=== PATIENT | female | born 1950 ===

== ENCOUNTER 2016-04-18 16:58 | Inpatient (IN) | payer OTHER ==
[~2016-04-18] VITALS: Ht 157.5 cm; Wt 68.9 kg
--- NOTE | ~2016-04-18 | HEMODYNAMI ---
PATIENT:RAYNA DEAN MEDICAL RECORD: [id number] : 52 [id number] ADMISSION DATE: 04/18/16 Generatedon:04/19/201615:33 Patient name: RAYNA DEAN Patient #: [id number] SSN: [id number] : 1950 Date of study: 04/19/2016 Page: Of Hemodynamic Procedure Report Patient Data Patient Demographics Procedure consent was obtained First Name: RAYNA Gender: Female Last Name: DIANNE : 1950 Patient #: [id number] Age: 65 year(s) Race: Unknown SSN: [id number] Additional ID: [id number] Contact details Address: [address] [address] State: [place] City: [place] Zip code: [address] Admission Admission Data Admission Date: 04/18/2016 Admission Time: 18:42 Arrival Date: 04/18/2016 Arrival Time: 0:00 Admit Source: Other Insurance Payor: Private Room #: [id number] health insurance Procedure Procedure Types Cath Procedure Diagnostic Procedure [facility] w/Coronaries Temporary Pacemaker Miscellaneous Procedures Moderate Sedation up to 30 minutes Procedure Description Procedure Date Procedure Date: 04/19/2016 Procedure Start Time: 15:05 Procedure End Time: 15:33 Procedure Staff Name Function Jon Puckett MD Performing Physician Lucía Valenzuela RT Scrub Anne-Marie Harris RN Nurse Julio Parrish RT Monitor Procedure Data Cath Procedure Fluoroscopy Diagnostic fluoroscopy Total fluoroscopy Time: 2.2 time: 2.2 min min Diagnostic fluoroscopy Total fluoroscopy dose: 340 dose: 340 mGy mGy Contrast Material Contrast Material Type Amount (ml) Isovue 300 643 Entry Location Entry Primary Successful Side Size Upsize Upsize Entry Closure Succes sful Closure Location (Fr) 1 (Fr) 2 (Fr) Remarks Device Remarks Femoral Right 5 Fr Exoseal artery Femoral Right 6 Fr vein Short Estimated blood loss: 10 ml Diagnostic catheters Device Type Used For End Catheter Placement Cordis 5Fr JL 4.0 Procedure Catheter (MP) Cordis 5Fr 3DRC Catheter Procedure (MP) Cordis 5Fr Pigtail LV Angiography Catheter (MP) Procedure Complications No complications Procedure Medications Medication Administration Route Dosage Oxygen NC 3 l/min Lidocaine 2% added to field 20 Heparin Flush Bag added to field 2 bags (1000units/500ml NS) 0.9% NaCl I.V. 100 ml/hr Versed I.V. 1 mg Fentanyl I.V. 50 mcg Atropine I.V. 2 mg Versed I.V. 1 mg Fentanyl I.V. 50 mcg Hemodynamics Rest Heart Rate: 40 (bpm) Pressure Samples Time Site Value (mmHg) Purpose Heart Use Rate(bpm) 15:07 AO 127/54(77) Snapshot 39 15:12 LV 159/16,22 Snapshot 36 15:13 AO 155/53(82) Pullback 36 15:13 LV 154/13,19 Pullback 36 Gradients Valve Time Site 1 Site 2 Mean SEP/DFP Peak To Heart Use (mmHg) (sec/min) Peak Rate (mmHg) (bpm) Aortic 15:13 LV AO 0 13 0 36 154/13,19 155/53(82) Calculations Valve P-P Mean Valve Index Valve Source Name Gradient Area Flow (cm2) Aortic 0 0 0 0 Snapshots Pre Cath Intra NCS Post Cath Vital Signs Time Heart Resp SPO2 etCO2 QC1oeun NIBP (mmHg) Rhythm Pain Sedation Rate (ipm) (%) (mmHg) (mmHg) Status Level (bpm) 14:54:10 48 13 93 0 0 165/73(124) 3 0 (11) 10(A) degree , No Heart pain Block 14:58:44 40 17 95 0 0 161/55(126) 3 0 (11) 10(A) degree , No Heart pain Block 15:03:18 42 14 92 0 0 132/48(93) 3 0 (11) 10(A) degree , No Heart pain Block 15:07:34 39 17 93 0 0 120/47(88) 3 0 (11) 10(A) degree , No Heart pain Block 15:12:54 42 16 90 0 0 135/70(98) 3 0 (11) 9(A) degree , No Heart pain Block 15:17:20 36 16 93 0 0 132/46(91) 3 0 (11) 9(A) degree , No Heart pain Block 15:21:44 67 15 91 0 0 119/49(86) 3 0 (11) 9(A) degree , No Heart pain Block 15:26:00 63 15 93 0 0 106/54(87) Paced 0 (11) 9(A) , No pain 15:30:12 68 16 94 0 0 109/54(84) Paced 0 (11) 10(A) , No pain Medications Time Medication Route Dose Verified Delivered Reason Notes Effe ctiveness by by 14:55:49 Oxygen NC 3 Jon Buffie used for l/min Italo Harris RN procedure 14:55:55 Lidocaine 2% added 20ml Jon Jon for local to vial Italo Puckett MD anesthetic field 14:56:04 Heparin Flush added 2 Jon Jon used for Bag to bags Italo Puckett MD procedure (1000units/500ml field NS) 14:56:13 0.9% NaCl I.V. 100 Jon Buffie Per ml/hr Italo Harris RN physician 15:05:12 Versed I.V. 1 mg Jon Buffie for Italo Harris RN sedation 15:05:18 Fentanyl I.V. 50 Jon Buffie for mcg Italo Harris RN sedation 15:12:10 Atropine I.V. 2 mg Jon Buffie Per Italo Harris RN physician 15:17:11 Versed I.V. 1 mg Jon Buffie for Italo Harris RN sedation 15:17:14 Fentanyl I.V. 50 Jon Buffie for mcg Italo Harris RN sedation Procedure Log Time Note 14:30:33 Julio Parrish RT(R) sent for patient. Start room use. 14:40:43 Informed consent obtained and on chart 14:40:50 Admit Source: Other 14:40:53 Arrival Date: 04/18/2016 12:00:00 AM 14:41:00 Insurance Payor : Private health insurance 14:44:11 Diagnostic Cath Status : Elective 14:44:40 Time tracking: Regular hours 14:44:45 Plan of Care:Hemodynamics will remain stable., Cardiac rhythm will remain stable., Comfort level will be maintained., Respiratory function will remain adequate., Patient/ family verbilizes understanding of procedure., Procedure tolerated without complication., Recovers from procedure without complications.. 14:44:51 Patient received from CVICU to CCL 1 Alert and oriented. Tansferred to table in Supine position. 14:44:52 Warm blankets applied, and shannon hugger turned on for patient comfort. 14:44:52 Correct patient and procedure confirmed by team. 14:44:53 ECG and BP/O2 sat monitors applied to patient. 14:52:49 Vital chart was started 14:52:50 Baseline sample Acquired. 14:55:24 Rhythm: 3rd degree heart block 14:55:27 Full Disclosure recording started 14:55:29 H&P Date Dictated: 04/18/2016 Within 30 days and on chart.. 14:55:30 Pre-procedure instructions explained to patient. 14:55:31 Pre-op teaching completed and patient verbalized understanding. 14:55:32 Family in waiting room. 14:55:33 Patient NPO since Midnight. 14:55:36 Is the patient allergic to Iodine/contrast media? No. 14:55:38 Is patient on blood thinner?No 14:55:41 ACC The patient was administered the following blood thiners within the last 24 hours: None 14:55:43 Patient diabetic? No. 14:55:45 Patient not . Patient is over age 55. 14:55:46 Previous problem with sedation/anesthesia? No ? 14:55:48 Snore? No 14:55:48 Sleep apnea? No 14:55:49 Oxygen 3 l/min NC was administered by Anne-Marie Harris RN; used for procedure; 14:55:49 Deviated septum? No 14:55:50 Opens mouth fully? Yes 14:55:51 Sticks out tongue? Yes 14:55:52 Airway obstruction? No ? 14:55:54 Dentures? No ? 14:55:55 Lidocaine 2% 20ml vial added to field was administered by Jon Puckett MD; for local anesthetic; 14:56:03 Pre procedure: right dorsailis pedis pulse 1+ Palpable, but thready & weak; easily obliterated 14:56:04 Heparin Flush Bag (1000units/500ml NS) 2 bags added to field was administered by Jon Puckett MD; used for procedure; 14:56:07 Patient pain scale 0/10 ?. 14:56:13 0.9% NaCl 100 ml/hr I.V. was administered by Anne-Marie Harris RN; Per physician; 14:56:14 IV patent on arrival in right antecubital with 0.9% NaCl at [facility]. 14:56:16 Lab results completed and on chart. 14:56:34 Right groin area was prepped with chlora-prep and draped in sterile fashion 14:56:35 Alarms reviewed by R. N. 14:56:36 Sharps counted by scrub and verified by R.N. 14:56:37 --------ALL STOP TIME OUT------ 14:56:38 Final Timeout: patient, procedure, and site verified with staff and physician. All members of the team are in agreement. 14:56:40 Right groin site verified by team. 14:56:42 Physical assessment completed. ASA score P 3 - A patient with severe systemic disease as per Jon Puckett MD. 14:56:46 Sedation plan: IV Moderate Sedation Versed, Fentanyl 14:56:54 Quick Combo opened to sterile field. 14:58:04 Quick combo pads placed to pt's Right chest and Left side. 15:04:20 Zero performed for pressure channel P1 15:04:25 Zero performed for pressure channel P1 15:04:43 Use device set Femoral Dx 15:04:52 Tegaderm 4 x 4 opened to sterile field. 15:04:53 Acist Hand Control opened to sterile field. 15:04:54 Acist Manifold opened to sterile field. 15:04:55 Acist Syringe opened to sterile field. 15:04:56 Bag Decanter opened to sterile field. 15:04:56 Medline Cath Pack opened to sterile field. 15:04:56 Terumo 5Fr Harvey Sheath opened to sterile field. 15:04:57 St Isacc 260cm J .035 wire opened to sterile field. 15:04:58 Diagnostic Infinity 5Fr Multipack catheter opened to sterile field. 15:05:12 Versed 1 mg I.V. was administered by Anne-Marie Harris RN; for sedation; 15:05:18 Fentanyl 50 mcg I.V. was administered by Anne-Marie Harris RN; for sedation; 15:05:19 Procedure started. 15:05:28 Local anesthetic to right femoral artery with Lidocaine 2% by Jon Puckett MD.INITIAL ACCESS ONLY 15:05:48 A 5 Fr sheath was inserted into the Right Femoral artery 15:06:40 A Cordis 5Fr JL 4.0 Catheter (MP) was advanced over the wire and used for Procedure. 15:08:16 LCA angiography performed. 15:09:26 Catheter exchanged over wire. 15:09:44 A Cordis 5Fr 3DRC Catheter (MP) was advanced over the wire and used for Procedure. 15:10:34 RCA angiography performed. 15:10:45 Catheter exchanged over wire. 15:11:20 A Cordis 5Fr Pigtail Catheter (MP) was advanced over the wire and used for LV Angiography. 15:12:10 Atropine 2 mg I.V. was administered by Anne-Marie Harris RN; Per physician; 15:12:50 LV angiography performed. 15:12:52 LV gram done using FLORES 15:13:09 EF : 40 % 15:13:14 LV hemodynamics recorded. 15:13:21 Injector settings: Ml/sec: 10, Volume: 20, 15:14:35 Catheter removed. 15:15:01 Terumo 6Fr Harvey Sheath opened to sterile field. 15:15:02 5Fr J Tip Temporary Pacing Catheter opened to sterile field. 15:15:45 Cordis 5Fr Exoseal opened to sterile field. 15:16:18 Local anesthetic to right femoral vein with Lidocaine 2% by Jon Puckett MD.ADDITIONAL ACCESS 15:16:52 A 6 Fr Short sheath was inserted into the Right Femoral vein 15:17:11 Versed 1 mg I.V. was administered by Anne-Marie Harris RN; for sedation; 15:17:14 Fentanyl 50 mcg I.V. was administered by Anne-Marie Harris RN; for sedation; 15:17:20 Temporary pacer inserted 15:21:32 Temporary pacer turned on with the following settings: Rate 80, MA 3.0, Mode: Demand. 15:22:39 Sheath removed intact; hemostasis achieved with Exoseal to the Right Femoral artery. 15:24:40 Venous sheath was sutured in with 2.0 silk. 15:25:42 Procedure ended.(Physican Out) 15:25:54 Fluoroscopy time 02.20 minutes. 15:25:59 Flurop Dose total: 340 15:25:59 Fluoroscopy dose: 340 mGy 15:26:03 Contrast amount:Isovue 300 643ml. 15:26:05 Sharps counted by scrub and verified by R.N. 15:26:43 Insertion/operative site no bleeding no hematoma. 15:26:46 Post-op/insertion site Right Femoral artery dressed using a 4 x 4 and Tegaderm. 15:26:58 Post Procedure Pulses reassessed and unchanged 15:27:02 Post-procedure physical assessment completed. ASA score P 3 - A patient with severe systemic disease as per Jon Puckett MD. 15:27:13 Post procedure rhythm: unchanged. 15:27:17 Estimated blood loss: 10 ml 15:27:20 Post procedure instruction explained to patient.Patient verbalizes understanding. 15:27:20 Patient needs reinforcement of post procedure teaching. 15:27:51 Procedure type changed to Cath procedure, Diagnostic procedure, LHC, LHC w/Coronaries, Temporary Pacemaker, Miscellaneous Procedures, Moderate Sedation up to 30 minutes 15:27:57 Procedure Complication : No complications 15:28:23 2.0 Silk 685H opened to sterile field. 15:28:30 2.0 Silk 685H opened to sterile field. 15:28:42 Procedure and supply charges have been captured, reviewed, submitted and are correct. 15:32:22 Vital chart was stopped 15:32:22 See physician's report for complete and final results. 15:32:27 Report given to CVICU. 15:33:18 Patient transfered to CVICU with Bed. 15:33:20 Procedure ended. 15:33:20 Full Disclosure recording stopped 15:33:26 End room use (Document Last) Device Usage Item Name Manufacture Quantity Catalog Hospital Part Current Minimal Lot# / Number Charge Number Stock Stock Serial# Code [facility] Systems 1 [id number] 199980 5 Combo Tegaderm 4 3M 1 [id number] [id number] 747266 712240 5 x 4 Acist Hand Acist 1 81875 287616 763633 804845 5 Control [employer] Inc Acist Acist 1 36092 410407 509481 641741 5 Manifold [employer] Inc Acist Acist 1 64234 937752 023191 988889 20 Syringe Medical Systems Inc Bag Microtek 1 2002S 850914 97956 802568 5 Bills Khakis. Medline Cardinal 1 [id number] 070711 93823 098436 5 [employer] Terumo 5Fr Terumo 1 [id number] 830741 523992 117661 [address] Isacc St Isacc 1 225961 432481 008064 894472 30 260cm J .035 wire Diagnostic Cardinal 1 [id number] 728176 21048 582240 30 Infinity Health 5Fr Multipack catheter Cordis 5Fr Cardinal 1 067951 5 JL 4.0 Health Catheter (MP) Cordis 5Fr Cardinal 1 [id number] 5 3DRC Health Catheter (MP) Cordis 5Fr Cardinal 1 805200 5 Pigtail Health Catheter (MP) Terumo 6Fr Terumo 1 [id number] 902981 202293 286539 40 Harvey Sheath 5Fr J Tip Man 1 [id number] 830778 24576 305218 2 Temporary Lifesciences Pacing Catheter Cordis 5Fr Cardinal 1 EX500 771628 895401 572728 10 Exoseal Health 2.0 Silk Ethicon 2 685H 319636 52514 508453 5 685H Signature Audit [place] Stage Time Signature Unsigned Intra-Procedure 04/19/2016 Julio Parrish 3:33:45 PM RT(R) Signatures Monitor : Julio Parrish RT Signature : Date : Time : [place] [id number] [facility] [place] [place] [address]
--- NOTE | ~2016-04-18 | HEMODYNAMI ---
PATIENT:RAYNA DEAN MEDICAL RECORD: [id number] : 52 LOCATION:[id number] ADMISSION DATE: 04/18/16 Generatedon:04/20/201614:55 Patient name: RAYNA DEAN Patient #: [id number] SSN: [id number] : 1950 Date of study: 04/20/2016 Page: Of Hemodynamic Procedure Report Patient Data Patient Demographics Procedure consent was obtained First Name: RAYNA Gender: Female Last Name: DIANNE : 1950 Patient #: [id number] Age: 65 year(s) Race: Unknown SSN: [id number] Additional ID: [id number] Contact details Address: [address] [place] [address] State: [place] City: [place] Zip code: [address] Past Medical History Allergies: No known allergies Admission Admission Data Admission Date: 04/18/2016 Admission Time: 18:42 Arrival Date: 04/18/2016 Arrival Time: 0:00 Admit Source: Other Insurance Payor: Private Room #: D.[id number] health insurance Procedure Procedure Types Cath Procedure Diagnostic Procedure PPM/ICD PPM Dual Implant Procedure Description Procedure Date Procedure Date: 04/20/2016 Procedure Start Time: 13:19 Procedure Staff Name Function Perfecto Yanez MD Performing Physician Geena Rios RT Scrub Anne-Marie Harris RN Nurse Bharat Gregory RT Monitor Nasir Nicolas MD Assisting physician Aislinn Pineda RT Monitor Procedure Data Cath Procedure Fluoroscopy Diagnostic fluoroscopy Total fluoroscopy Time: 4.1 time: 4.1 min min Diagnostic fluoroscopy Total fluoroscopy dose: 187 dose: 187 mGy mGy Procedure Complications No complications Procedure Medications Medication Administration Route Dosage Ancef (1Gm/50ml NS) I.V.P.B 1 g Ancef Irrigation Topical 1 g (1gm/500ml NS) Lidocaine 1% with added to field 20 ml Epi Bupivacaine 0.5% S.Q. 10 ml Versed I.V. 1 mg Fentanyl I.V. 50 mcg Versed I.V. 1 mg Fentanyl I.V. 50 mcg Fentanyl I.V. 25 mcg Fentanyl I.V. 50 mcg Fentanyl I.V. 25 mcg Hemodynamics Rest Heart Rate: 60 (bpm) Snapshots Pre Cath Intra NCS Post Cath Vital Signs Time Heart Resp SPO2 NIBP Rhythm Pain Sedation Rate (ipm) (%) (mmHg) Status Level (bpm) 13:54:46 59 19 94 142/54(84) Paced 0 (11) 10(A) , No pain 13:59:10 60 16 95 97/54(74) Paced 0 (11) 10(A) , No pain 14:03:18 57 18 96 114/52(80) Paced 0 (11) 10(A) , No pain 14:07:34 59 15 95 99/48(77) Paced 0 (11) 10(A) , No pain 14:11:42 59 18 94 103/52(76) Paced 0 (11) 10(A) , No pain 14:16:53 42 16 96 108/58(97) 3 0 (11) 10(A) degree , No Heart pain Block 14:22:02 41 15 95 118/42(83) 3 0 (11) 10(A) degree , No Heart pain Block 14:27:26 41 20 95 104/44(72) 3 0 (11) 10(A) degree , No Heart pain Block 14:31:27 40 18 95 104/80(93) 3 0 (11) 10(A) degree , No Heart pain Block 14:35:31 84 19 91 100/55(70) 3 0 (11) 10(A) degree , No Heart pain Block 14:39:39 90 16 93 103/57(83) 3 0 (11) 10(A) degree , No Heart pain Block 14:43:47 86 16 95 111/60(85) 3 0 (11) 10(A) degree , No Heart pain Block 14:47:55 89 17 96 121/65(85) 3 0 (11) 10(A) degree , No Heart pain Block 14:51:54 No Cuff 3 0 (11) 10(A) degree , No Heart pain Block Medications Time Medication Route Dose Verified Delivered Reason Notes Effectiv eness by by 13:55:03 Ancef Topical 1 g Perfecto Que used for Irrigation Spicer Breving procedure (1gm/500ml MD PRO NS) 13:55:12 Lidocaine added 20 ml Perfecto Grey for local 1% with Epi [facility] MD PRO 13:55:24 Bupivacaine S.Q. 10 ml Perfecto Grey for local 0.5% [facility] PRO 14:06:16 Versed I.V. 1 mg Perfecto Xie for Spicer Harris RN sedation 14:06:23 Fentanyl I.V. 50 Perfecto Fosterie for mcg Renata Harris RN sedation 14:10:25 Ancef I.V.P.B 1 g Perfecto Xie used for (1Gm/50ml Spicer Harris axle inspector NS) 14:18:22 Versed I.V. 1 mg Perfecto Fosterie for Renata Harris RN sedation 14:18:27 Fentanyl I.V. 50 Perfecto Buffie for mcg Renata Harris RN sedation 14:20:46 Fentanyl I.V. 25 Perfecto Fosterie for mcg Spicer Harris RN sedation 14:30:13 Fentanyl I.V. 50 Perfecto Fosterie for mcg Spicer Harris RN sedation 14:32:38 Fentanyl I.V. 25 Perfecto Fosterie for mcg Renata Harris RN sedation Procedure Log Time Note 13:15:48 Anne-Marie Harris RN sent for patient. Start room use. 13:20:17 Patient arrived with Temp Pacemaker in place. 13:20:42 ACC Patient presents with Non-STEMI CCS Anginal Class 2--Slight limitation of ordinary activity. 13:20:45 Diagnostic Cath status Urgent 13:20:54 Time tracking: Regular hours 13:20:58 Plan of Care:Hemodynamics will remain stable., Cardiac rhythm will remain stable., Comfort level will be maintained., Respiratory function will remain adequate., Patient/ family verbilizes understanding of procedure., Procedure tolerated without complication., Recovers from procedure without complications.. 13:21:06 Use device set Pacemaker Set 13:21:10 Mepilex Dressing opened to sterile field. 13:21:12 2.0 Ticron Multipack opened to sterile field. 13:21:16 3.0 Vicryl Multipack [id number] opened to sterile field. 13:21:17 5.0 Monocryl PS2 Y495G opened to sterile field. 13:21:42 Medtronic cash posting representative GEETA MANRIQUEZ present for procedure. 13:53:16 Patient received from CVICU to CCL 2 Alert and oriented. Tansferred to table in Supine position. 13:53:17 Warm blankets applied, and shannon hugger turned on for patient comfort. 13:53:18 Correct patient and procedure confirmed by team. 13:53:19 Signed procedure consent form obtained from patient. 13:53:20 ECG and BP/O2 sat monitors applied to patient. 13:53:22 Vital chart was started 13:53:22 Full Disclosure recording started 13:53:26 Pre-procedure instructions explained to patient. 13:53:27 Pre-op teaching completed and patient verbalized understanding. 13:53:29 Family in waiting room. 13:53:30 Patient NPO since Midnight. 13:53:37 Patient allergic to No known allergies 13:53:45 Rhythm: paced 13:53:51 Is the patient allergic to Iodine/contrast media? No. 13:53:55 Is patient on blood thinner?No 13:53:59 Patient diabetic? No. 13:54:28 Previous problem with sedation/anesthesia? No ? 13:54:30 Snore? No 13:54:31 Sleep apnea? No 13:54:31 Deviated septum? No 13:54:32 Opens mouth fully? Yes 13:54:33 Sticks out tongue? Yes 13:54:34 Airway obstruction? No ? 13:54:36 Dentures? No ? 13:54:52 Patient pain scale 0/10 ?. 13:55:03 Ancef Irrigation (1gm/500ml NS) 1 g Topical was administered by Que Bradley MD; used for procedure; 13:55:09 IV patent on arrival in right forearm with 0.9% NaCl at O. 13:55:12 Lidocaine 1% with Epi 20 ml added to field was administered by Que Bradley MD; for local anesthetic; 13:55:24 Bupivacaine 0.5% 10 ml S.Q. was administered by Que Bradley MD; for local anesthetic; 13:55:57 Lab results completed and on chart. 13:56:09 Left chest area was prepped with chlora-prep and draped in sterile fashion 13:56:10 Alarms reviewed by R. N. 13:56:10 Sharps counted by scrub and verified by R.N. 13:56:14 Use device set Pacemaker Set 13:56:16 3.0 Vicryl Single Pack [id number] opened to sterile field. 13:56:19 Mepilex Dressing opened to sterile field. 13:56:20 2.0 Ticron Multipack opened to sterile field. 13:56:28 3.0 Vicryl Multipack [id number] opened to sterile field. 13:56:30 5.0 Monocryl PS2 Y495G opened to sterile field. 13:57:45 Baseline sample Acquired. 13:58:16 3.0 Vicryl Single Pack [id number] opened to sterile field. 13:58:50 Pre sharps counted by scrub and verified by RN: Sutures: 15 Sponges: 5 Stick needles: 2 Skin needles: 2 Blade: 1 Cautery: 1 13:58:53 Grounding pad site Left thigh. 14:02:00 Grounding pad site free from injury. 14:04:11 Final Timeout: patient, procedure, and site verified with staff and physician. All members of the team are in agreement. 14:04:23 Left chest site verified by team. 14:04:28 Physical assessment completed. ASA score P 2 - A patient with mild systemic disease as per Perfecto Yanez MD. 14:04:32 Sedation plan: IV Moderate Sedation Versed, Fentanyl 14:06:16 Versed 1 mg I.V. was administered by Anne-Marie Harris RN; for sedation; 14:06:23 Fentanyl 50 mcg I.V. was administered by Anne-Marie Harris RN; for sedation; 14:10:25 Ancef (1Gm/50ml NS) 1 g I.V.P.B was administered by Anne-Marie Harris RN; used for procedure; 14:13:04 Lidocaine 1% w/epi and Bupivacaine 0.5% to left subclavicular area by Nasir Nicolas MD. 14:14:47 Temporary pacer turn off 14:15:32 Incision made to left subclavicular area. 14:15:34 Generator pocket made/opened. 14:17:50 Medtronic 4574-45 PPM Lead opened to sterile field. 14:17:51 Medtronic Adapta PPM Dual Generator opened to sterile field. 14:17:51 Medtronic 4074-52 PPM Lead opened to sterile field. 14:18:22 Versed 1 mg I.V. was administered by Anne-Marie Harris RN; for sedation; 14:18:27 Fentanyl 50 mcg I.V. was administered by Anne-Marie Harris RN; for sedation; 14:19:37 Left subclavian vein accessed with 7Fr Safe Sheath. 14:20:46 Fentanyl 25 mcg I.V. was administered by Anne-Marie Harris RN; for sedation; 14:21:27 Ventricular lead inserted and advanced. 14:22:17 Atrial lead inserted and advanced. 14:28:42 temp pacer pulled order by [facility] by aislinn 14:29:18 Ventricular lead tested. 14:30:13 Fentanyl 50 mcg I.V. was administered by Anne-Marie Harris RN; for sedation; 14:30:15 Atrial lead tested. 14:32:38 Fentanyl 25 mcg I.V. was administered by Anne-Marie Harris RN; for sedation; 14:32:38 Ventricular lead attachment was completed with 2-0 ticron. 14:32:44 Atrial lead attachment was completed with 2-0 ticron. 14:35:13 PPM Dual was attached to lead(s) and inserted into pocket. 14:35:59 Generator was sutured in place with 2-0 ticron. 14:36:17 Device pocket was irrigated with Ancef. 14:43:46 Subcutaneous closure was completed with 3-0 vicryl. 14:43:59 Skin closure was completed with 5-0 monocryl. 14:48:40 Parameters-- Generator: Mode: DUAL. Lower Rate: 60bpm. Upper Rate: 130bpm. 14:49:54 Parameters--Ventricular P/R Wave: 13.5mV. Current: 0.6mA; Threshold: 0.5V; Impedence: 896OHMS. 14:50:28 Parameters--Atrial P/R Wave: 3.5mV. Current: 0.5mA; Threshold: 0.5V; Impedence: 606OHMS. 14:50:32 Lt Chest incision was dressed with Mepilex dressing. 14:50:35 Procedure ended.(Physican Out) 14:50:47 Fluoroscopy time 04.10 minutes. 14:50:51 Fluoroscopy dose: 187 mGy 14:50:51 Flurop Dose total: 187 14:50:53 Sharps counted by scrub and verified by R.N. 14:51:01 Post-op/insertion site Left Chest area dressed using a Mepilex dressing. 14:51:14 Post right femoral vein:stable 14:51:21 Post-op/insertion site Right Femoral vein dressed using a 4 x 4 and Tegaderm. 14:51:31 Post Procedure Pulses reassessed and unchanged 14:51:36 Post procedure rhythm: paced 14:51:38 Post procedure instruction explained to patient.Patient verbalizes understanding. 14:51:54 Procedure and supply charges have been captured, reviewed, submitted and are correct. 14:51:58 Procedure Complication : No complications 14:52:01 Vital chart was stopped 14:52:02 See physician's report for complete and final results. 14:52:04 Report given to CVICU. 14:52:07 Patient transfered to CVICU with Bed. 14:52:33 PROCEDURE STOPPED 14:52:36 End room use (Document Last) Device Usage Item Name Manufacture Quantity Catalog Hospital Part Current Minimal Lo t# / Number Charge Number Stock Stock Serial# Code Mepilex Cardinal 2 [id number] [id number] [id number] 337500 5 Dressing Health 2.0 Ethicon 2 [id number] 20638 054725 5 Ticron Multipack 3.0 Ethicon 2 [id number] 366650 480820 198230 5 Vicryl Multipack [id number] 5.0 Ethicon 2 Y495G 658302 514755 206760 5 Monocryl PS2 Y495G 3.0 Ethicon 2 [id number] 487164 938340 727952 5 Vicryl Single Pack [id number] Medtronic Medtronic 1 45 703158 226717 5 BB [id number] Ex p: PPM Lead 20 23-11-11 Medtronic Medtronic 1 [id number] 358133 5 NW [id number] Adapta Ex p: PPM Dual 23-06-27 Generator Medtronic Medtronic 1 [id number] 326404 5 BB [id number] Ex p: PPM Lead 20 22-11-24 Signature Audit [place] Stage Time Signature Unsigned Intra-Procedure 04/20/2016 Bharat Gregory 2:55:22 PM RT(R) Signatures Monitor : Bharat Gregory RT Signature : Date : Time : Monitor : Aislinn Signature : Counts RT Date : Time : [address] [place] [address]
--- NOTE | 2016-04-18 18:40 | NUR ---
PT ARRIVED TO ROOM VIA STRETCHER ACCOMPANIED BY EMS. PT ALERT AND CONVERSANT. REQUESTS TOILETING. PT ON ROOM AIR. NO DISTRESS NOTED. AMBULATES ON OWN, WITH NO DIFFICULTY. NO FAMILY WITH PT AT THIS TIME. HR 44, NO COMPLAINTS OF CHEST PAIN.
--- NOTE | 2016-04-18 18:55 | NUR ---
DR LENNON NOTIFIED PT HAS ARRIVED
[2016-04-18 19:00] VITALS: BP 156/57
--- NOTE | 2016-04-18 19:00 | NUR ---
REPORT RECEIVED. PT IS BRADYCARDIC WITH A HR IN LOW 40'S. 3RD DEGREE BLOCK. NO C/O CHEST PAIN. ALERT AND ORIENTED. STATES SHE DOES NOT CURRENTLY TAKE ANY HOME MEDS. DR LENNON EN ROUTE TO ASSESS PT. WILL CONTINUE TO SHARITA.
[2016-04-18 19:33] VITALS: BP 179/64; BMI 27.8
[2016-04-18 20:00] VITALS: BP 144/72
[2016-04-18 21:00] VITALS: BP 172/48
--- NOTE | 2016-04-18 21:00 | NUR ---
DR LENNON CAME TO SEE PT AND ASSESS STATUS. ORDERS GIVEN FOR 20MG LASIX Q8HR, AND 81 MG ASPIRIN. STATED THAT SHE WILL NEED TO GO TO [employer]OR OF SCOUT WORK TOMORROW. NPO AFTER BREAKFAST. PT C/O PAIN IN IV SITES. ATTEMPTED TO RESITE BY MULTIPLE NURSES WITH NO SUCCESS. IV STILL PATENT IN RIGHT AC. LEFT AC IV REMOVED. FAMILY AT BEDSIDE. NO OTHER CHANGES AT THIS TIME. VSS. WILL CONTINUE TO MONITOR.
[2016-04-18 22:00] VITALS: BP 162/55
[2016-04-18 23:00] VITALS: BP 107/42
[2016-04-19] VITALS (26 sets, daily range): BP systolic 115–168; BP diastolic 44–100; Ht 157.5 cm; Wt 68.9 kg
--- NOTE | 2016-04-19 01:17 | NUR ---
NO CHANGES IN STATUS AT THIS TIME. WILL CONTINUE TO MONITOR.
--- NOTE | 2016-04-19 03:49 | NUR ---
REASSESSMENT COMPLETED. SEE FLOWSHEET FOR FULL DETAILS.
--- NOTE | 2016-04-19 05:00 | NUR ---
NO CHANGES IN STATUS AT THIS TIME. VSS. WILL CONTINUE TO MONITOR.
--- NOTE | 2016-04-19 07:30 | NUR ---
SHIFT ASSESSMENT COMPLETE. SEE FLOW SHEET FOR FINDINGS. PT HAS BEEN UP TO TOILET. NO COMPLAINTS VOICED. ON ROOM AIR. HR 44.
--- NOTE | 2016-04-19 09:00 | NUR ---
FAMILY IN FOR VISITATION
--- NOTE | 2016-04-19 09:35 | NUR ---
PT UP TO TOILET. 20ML URINE OUTPUT.
--- NOTE | 2016-04-19 12:15 | NUR ---
FAMILY AT BEDSIDE FOR VISITATION.
--- NOTE | 2016-04-19 12:41 | NUR ---
IN ROOM TO PLACED SCD'S ON PT. PT SUDDENLY COMPLAINED OF BEING VERY DIZZY. HAD HR IN 170'S NON-SUSTAINED V-TACH.
--- NOTE | 2016-04-19 13:47 | NUR ---
PRE-OP MEDICATIONS GIVEN.
--- NOTE | 2016-04-19 14:40 | NUR ---
PT BEING TAKEN OFF THE UNIT TO CATH PROCEDURE
--- NOTE | 2016-04-19 14:44 | NUR ---
INFORMED FAMILY IN WAITING AREA THAT PATIENT HAS BEEN TAKEN FOR PROCEDURE
--- NOTE | 2016-04-19 14:47 | NUR ---
Patient Name: RAYNA DEAN Admission Status: Urgent Accout number: [id number] Admission Date: 04-18-2016 : 1950 Admission Diagnosis: Attending: LEIGHTON Current LOS: 1 Anticipated DC Date: 04-22-2016 Planned Disposition: Home Primary Insurance: [employer] HLTH INS EXCHANGE Is the patient Alert and Oriented? Yes * How many steps to enter\exit or inside your home? SIX WITH RAILING. * PCP DOES NOT HAVE PCP SEES [facility] AT CLINIC IN [place] (LAST VISIT IN JULY 2015) * Pharmacy [facility] IN [place] * Preadmission Environment Home with Family * ADLs Independent * Equipment None * List name and contact numbers for known caregivers / representatives who currently or will assist patient after discharge: ASPEN GARCIA [phone] * Community resources currently utilized None * Additional services required to return to the preadmission environment? No * Can the patient safely return to the preadmission environment? Yes * Has this patient been hospitalized within the prior 30 days at any hospital? No Discharge Planning Comments: CM MET WITH PATIENT TO ASSESS DC PLAN/NEEDS. SHE STATED SHE LIVES AT HOME WITH HER SON AND IS INDEPENDENT IN HER CARE/ADL'S. STATED SHE DOES NOT DRIVE AND FAMILY WILL PROVIDE HER TRANSPORTATION AT D/C. SHE STATED SHE USES NO MEDICAL EQUIPMENT AND HAS NEVER USED HH IN THE PAST. SHE DENIED NEED FOR ANY HH OR REHAB SERVICES AND STATED SHE HAS A LOT OF FAMILY THAT CAN ASSIST HER AT D/C. ALSO DENIED NEED FOR DME. SHE STATED HER HOME IS A SAFE PLACE AND PLANS TO RETURN HOME AT D/C. CM WILL FOLLOW AND ASSIST WITH ANY DC NEEDS THEY ARISE. Process Expert: Nuvia Pisano RN, CM
--- NOTE | 2016-04-19 15:50 | NUR ---
PT RETURNED TO ROOM FROM MACHINE OPERATOR HELPER. NO STENTS PLACED. PT HAS TEMPORARY PACEMAKER. SET AT 60. RIGHT GROIN ENTRY. SHEATH INTACT. DRESSING CLEAN, DRY AND INTACT. PT INSTRUCTED TO KEEP LEG STRAIGHT.
--- NOTE | 2016-04-19 16:30 | NUR ---
16F LUBIN CATHETER PLACED.
--- NOTE | 2016-04-19 17:45 | NUR ---
PT AWAKE AND WANTING TO EAT. MEAT CUT UP FOR PATIENT FOR EASIER HANDLING. DRESSING TO RIGHT GROIN IS CLEAN AND INTACT. LEG IS STRAIGHT. DENIES ANY OTHER NEEDS AT THIS TIME.
--- NOTE | 2016-04-19 19:00 | NUR ---
REPORT RECEIVED AND ASSESSMENT COMPLETED. PT HAS TEMPORARY PACEMAKER AND SHEATH IN RIGHT GROIN. PACEMAKER VVI 60 WITH 3MA AND SENSITIVITY OF 2.0. VSS. WILL CONTINUE TO MONITOR.
--- NOTE | 2016-04-19 21:00 | NUR ---
NORCOR GIVEN FOR PAIN IN LEG AND HEAD. ALL PULSES PALPABLE. VSS. WILL CONTINUE TO MONITOR.
--- NOTE | 2016-04-19 23:00 | NUR ---
REASSESSMENT COMPLETED. SEE FLOWSHEET.
[2016-04-20] VITALS (27 sets, daily range): BP systolic 97–145; BP diastolic 47–81
--- NOTE | 2016-04-20 01:00 | NUR ---
PT SLEEPING IN ROOM VSS. NO CHANGES IN STATUS AT THIS TIME. BEDSIDE RAILS UP X 3. WILL MONITOR.
--- NOTE | 2016-04-20 03:36 | NUR ---
DURING SLEEP PT O2 HAS BE DECREASING BREIFLY BEFORE RETURNING TO LOW 90'S. IF CONTINUES WILL PLACE ON O2. NO OTHER CHANGES AT THIS TIME.
--- NOTE | 2016-04-20 03:36 | NUR ---
REASSESSMENT COMPLETED. SEE FLOWSHEET.
--- NOTE | 2016-04-20 05:04 | NUR ---
PT PLACED ON 1L O2 NC. SAT NOW AT 93. WILL CONTINUE TO MONITOR.
--- NOTE | 2016-04-20 07:30 | NUR ---
SHIFT ASSESSMENT COMPLETE. PT RESTING, AWAITING PACEMAKER PLACEMENT TODAY. HAS BEEN NPO SINCE MIDNIGHT. HR 60, PACED.
--- NOTE | 2016-04-20 11:25 | NUR ---
DAUGHTER IN LAW CALLED TO CHECK ON PT. GAVE HER NUMBER TO PT ROOM AND ASSISTED PT WITH REACHING PHONE WHEN RANG.
--- NOTE | 2016-04-20 13:27 | NUR ---
TRIAL LAWYER STAFF AT BEDSIDE VERIFYING PT IDENTITY AND PREPARING FOR TRANSPORT TO TRIAL LAWYER FOR PACEMAKER PLACEMENT. FAMILY NOTIFIED PT LEAVING UNIT.
--- NOTE | 2016-04-20 13:35 | NUR ---
PT OFF UNIT FOR PACEMAKER PLACEMENT.
--- NOTE | 2016-04-20 15:00 | NUR ---
PT RETURNED TO ROOM FROM MANUFACTURING FINANCE MANAGER. RIGHT GROIN DRESSING INTACT. LEFT CHEST MEPILEX DRESSING OVER PACEMAKER INSERTION SITE. LEFT ARM IN SLING. PT ALERT AND CONVERSANT. ASKS FOR A SPRITE
--- NOTE | 2016-04-20 16:45 | NUR ---
PT AWAKE. SON AT BEDSIDE
--- NOTE | 2016-04-20 17:30 | NUR ---
PT AWAKE, HAS EATEN HER DINNER. DENIES ANY OTHER NEEDS. CALL LIGHT IN REACH
--- NOTE | 2016-04-20 19:00 | NUR ---
1900: Pt rec'd resting HOB 30 degrees with eyes open. Pt is alert and oriented w/o c/o at this time. Pt denies pain, tingling, nausea, numbness at this time. Pt breathing 022LNC with RR12x with SPO2 97%. Lungs clear bilat with auscultation. MMP and no cyanosis noted. S1S2 regular Paced 80's on CM. PPPx4=bilat. Left upper chest incision C/D/I. Arm sling in place. ABD soft NT BSx4. Mcclelland to gravity with >30 cc/hr yellow UOP.
--- NOTE | 2016-04-20 23:00 | NUR ---
2300: Pt resting in bed with eyes closed at this time. Pt with no c/o. Pt remains Paced on CM 73 bpm. Pt remains on room air with SPo2 94%
[2016-04-21] VITALS (10 sets, daily range): BP systolic 119–150; BP diastolic 54–86
--- NOTE | 2016-04-21 02:00 | NUR ---
0200: SPO2 decreased to 89%. Pt sleeping. Pt easliy arousable with verbal stimuli. Encouraged DBC and SPO2 increased to 96%. Pt remains Paced 70's on CM.
--- NOTE | 2016-04-21 05:00 | NUR ---
0500: Pt resting with eyes closed at this time. Open to verbal and pt is oriented x3. Pt states her IV is painfull. Right AC IV intact with no increased warmth detected. Area not edematous. IV draws blood and flushes without difficulty. Pt states IV really hurts with BP measurement. Changed NIBP measurement to Q1H from Q10min. Pt remains Paced 70's on CM. No change in RESP/NV status.
--- NOTE | 2016-04-21 09:15 | NUR ---
AM MEDS GIVEN PER APR. LUBIN CATHETER REMOVED WITH TIP INTACT. RIGHT FOREARM PIV REMOVED WITH BANDAID APPLIED. SITTING IN BEDSIDE CHAIR.
--- NOTE | 2016-04-21 09:58 | NUR ---
D/C INSTRUCTIONS DISCUSSED WITH PATIENT AT BEDSIDE. VERBALIZED UNDERSTANDING. FOLLOW UP APPT WITH DR. LENNON MADE. UP TO BEDSIDE TO DRESS.
--- NOTE | 2016-04-21 11:35 | NUR ---
WHEELED OUT VIA WHEELCHAIR BY CVICU STAFF. FAMILY AT SIDE.
--- NOTE | 2016-04-22 09:45 | OP ---
PATIENT NAME: AYLEEN YAÑEZ MEDICAL RECORD: [id number] :[birth year] LOCATION:[id number] ADMISSION DATE:04/18/16 SURGEON: MOJGAN AHN MD DATE OF OPERATION: 04/20/2016 PROCEDURE: Lead portion of permanent pacemaker placement. SURGEON: Nasir Nicolas MD. DESCRIPTION OF PROCEDURE: After left subclavian was cannulated via modified Seldinger technique, first under fluoroscopic guidance, I placed the RV lead in the RV apex without difficulty. After adequate R waves and thresholds were obtained, again under fluoroscopic guidance, I placed the atrial lead in the right atrial appendage without difficulty. After adequate P waves and thresholds were obtained, the leads were attached to appropriate poles of the generator and the pocket was closed via Dr. Nicolas. IMPRESSION: Successful lead portion of permanent pacemaker placement on Ayleen Yañez. COMPLICATIONS: None. DISPOSITION: To the floor, stable. ESTIMATED BLOOD LOSS: Minimal. TRANSINT:[id number] Voice Confirmation ID: [id number] DOCUMENT ID: [id number] MOJGAN AHN MD at 0945 CC: [id number] DICTATION DATE: 04/20/16 1441 STRING WINDING MACHINE OPERATOR: 04/20/16 2217 DIS IN 04/21/16 [facility] [address] [place] [address]
--- NOTE | 2016-04-25 08:17 | OP ---
PATIENT NAME: RAYNA DEAN MEDICAL RECORD: [id number] :52 [facility] AD[facility] DATE:04/18/16 SURGEON: RUTH VELASCO M.D. DATE OF OPERATION: 04/19/2016 Catheterization Report PROCEDURES PERFORMED: 1. Selective coronary angiography. 2. Left heart catheterization with ventriculogram. 3. Temporary pacemaker insertion. INDICATION: A 65-year-old woman presents with non-Q-wave myocardial infarction and third degree AV block. EQUIPMENT USED: A 5-Belizean JL4, Tomas right, and pigtail catheter. TECHNIQUE: A 5-Belizean sheath was inserted in retrograde fashion in the right common femoral artery. Next, selective coronary angiography was performed in standard view using 5-Belizean JL4 and Tomas right. Left heart catheterization was performed using pigtail catheter. CORONARY ANATOMY: 1. Left main: Left main trunk is moderate in caliber. It gives rise to the LAD and circumflex. It is a smooth-walled vessel and angiographically normal. 2. LAD: This is a large caliber vessel extending to the apex. It gives rise to moderate caliber diagonal mid segment. The LAD and diagonal are smooth-walled vessels and angiographically normal. 3. Circumflex: This vessel is small in caliber. It provides a high lateral branch proximal segment. This vessel is smooth-walled and angiographically normal. 4. Right coronary artery: This vessel is quite large and dominant. It provides the PDA and posterolateral branch in the distal segment. This vessel is smooth-walled and angiographically normal. 5. Left ventricle: Left ventricle is normal in size. No regional wall motion abnormalities are seen. Estimated ejection fraction is in the order of 45%. It may be under appreciated as the patient is quite bradycardic. At this point, a 6-Belizean sheath was inserted in retrograde fashion in the right common femoral vein. A temporary pacemaker catheter was advanced and placed in the right ventricular apex as the patient was then third degree AV block and bradycardiac. The pacemaker was then placed with a rate of 60 with mA of 5. At this point, the patient was pacing the ventricle appropriately. IMPRESSION: 1. Normal coronary arteries. 2. Low normal left ventricular function. 3. Third-degree AV block. RECOMMENDATIONS: At this point, we will proceed with permanent pacemaker implantation. TRANSINT:[id number] Voice Confirmation ID: [id number] DOCUMENT ID: [id number] OPERATIVE REPORT [id number] RAYNA DEAN TIMOTHY E M.D. at 0817 CC: [id number] DICTATION DATE: 04/19/16 153 CERT OCCUPATIONAL THERAPY ASST: 04/20/16 0050 DIS IN 04/21/16 [facility] [address] [id number]
--- NOTE | 2016-05-02 14:37 | HP ---
PATIENT: RAYNA YAÑEZ MEDICAL RECORD: [id number] ACCOUNT: [id number] LOCATION:[facility] D.CV04 : 52 ADMISSION DATE: 04/18/16 HISTORY AND PHYSICAL EXAMINATION ADMITTING DIAGNOSES: 1. Third degree heart block. 2. Non-Q-wave myocardial infarction. HISTORY OF PRESENT ILLNESS: Mrs. Yañez presents with shortness of breath. EKG was found to be third-degree heart block with ST-T changes. She has not had any chest pain or chest discomfort. Her chest x-ray is compatible with pulmonary edema. She has received Lovenox and Plavix. She is not having any chest pain. PHYSICAL EXAMINATION: GENERAL APPEARANCE: Well-nourished, well-developed, appears stated age. Level of distress, comfortable. PSYCHIATRIC: Mental status, alert, normal affect. Orientation, oriented to time, place and person. EYES: Lids and conjunctiva, noninjected. No discharge, no pallor. ENT: Lips, teeth, gums, normal dentition. Oropharynx, no cyanosis, no pallor. NECK: Carotid arteries, bilateral normal upstroke, no bruits, no thrills. JUGULAR VEINS: No jugular venous pressure or distention. CERVICAL LYMPH NODES: Nontender, nonenlarged. THYROID: Not enlarged. Nontender. No nodules. LUNGS: Respiratory effort, unlabored. CHEST: Normal curvature. No thoracic deformity. No chest wall tenderness. Percussion, resonant. Auscultation, clear. No wheezes, no rales, no rhonchi. CARDIOVASCULAR: Precordial exam, nondisplaced. No heaves or pericardial thrills. Rate and rhythm, regular. Heart sounds, normal S1, normal S2. No S3, no gallop, no rub. Systolic murmur, not heard. Diastolic murmur, not heard. EXTREMITIES: No cyanosis, no edema. Peripheral pulses, full and equal in all extremities, except as noted. No bruits appreciated. ABDOMEN: Soft, nondistended. Normal aorta. No bruit. Nontender. No masses. Liver, nontender, no hepatomegaly. Spleen, nontender, no splenomegaly. MUSCULOSKELETAL: No joint tenderness. No joint swelling. No erythema. NEUROLOGICAL: Normal gait, normal strength, normal tone. SKIN: Warm and dry. REVIEW OF SYSTEMS: The patient reports easy bruising but reports no swollen glands. The patient reports no fever, no night sweats, no significant weight gain, no significant weight loss. No significant exercise tolerance. The patient reports no dry eyes, no irritation, no vision change. Patient reports no difficulty hearing and no ear pain. Patient reports no frequent nose bleeds or nose and sinus problems. Patient reports on arm pain on exertion. No shortness of breath while lying down. No history of heart murmur. Patient reports no cough, no wheezing or coughing up blood. Patient reports no abdominal pain, no vomiting. Normal appetite. No diarrhea and not vomiting blood. No nausea and no constipation. Patient reports no incontinence. No difficulty urinating. No hematuria. No increased frequency. Patient reports no muscle aches. No weakness, no arthralgias, no back pain. No swelling of the extremities. Patient reports no abnormal mole, no jaundice, no rashes. Reports no loss of consciousness. No weakness and no numbness. No seizures, dizziness, or headaches. The patient reports no depression, no sleep disturbance, feeling safe in a relationship and no alcohol abuse. Patient reports on fatigue. HISTORY AND PHYSICAL [id number] RAYNA YAÑEZ Reports no runny nose or sinus pressure. No itching, no hives, and no frequent sneezing. OVERALL IMPRESSION: Third degree heart block, most likely ischemic in nature. We will proceed with coronary angiography. We will give her IV Lasix for the pulmonary edema, but her breathing is quite stable at this time. Further care depends upon findings of the angiography and most likely ____ permanent pacemaker. TRANSINT:[id number] Voice Confirmation ID: [id number] DOCUMENT ID: [id number] ANA LENNON MD at 1437 CC: [id number] DICTATION DATE: 04/18/161934 NARROW GAUGE ENGINEER: 04/18/16 1950 DIS IN 04/21/16 [facility] [address] [place] [address]
--- NOTE | 2016-05-05 13:21 | OP ---
PATIENT NAME: RAYNA DEAN MEDICAL RECORD: [id number] :52 LOCATION:D.CVI D.CV04 ADMISSION DATE:04/18/16 SURGEON: NASIR PAYNE MD DATE OF OPERATION: 04/20/2016 PREOPERATIVE DIAGNOSES: 1. Third degree heart block. 2. Angina. POSTOPERATIVE DIAGNOSES: 1. Third degree heart block. 2. Angina. PROCEDURE: Left subclavian vein, pacemaker placement with fluoroscopic interpretation. SURGEON: Nasir Payne MD. CO-SURGEON: Perfecto Yanez MD. REPORT OF OPERATION: The patient's left chest was prepped and draped in sterile fashion. A 20 mL of 1% lidocaine with epinephrine was infused into the surrounding tissues. A skin incision was made on the left upper lateral chest and a subcutaneous pouch was made overlying the pectoral fascia. The left subclavian vein was accessed and a wire was advanced with ease. A second left subclavian vein access was performed and again a guidewire was advanced with ease. Fluoro was used to note that these wires were in good position in the venous system projecting towards the heart. Dilator trocar devices were placed over the wires and the wire and dilators were removed. The atrial and ventricular leads were then inserted and at this point, Dr. Yanez positioned the leads in the heart. After adequate placement was guaranteed, then the trocars were removed. These were then sutured into place with 0 Ti-Cron. The pacemaker was then affixed to the leads and the pacemaker was inserted in to the subcutaneous pouch and sutured to the pectoral fascia using a single interrupted 0 Ti-Cron. The subcutaneous tissues were then irrigated out with normal saline and reapproximated with interrupted 3-0 Vicryls. The skin was then closed with running subcutaneous 5-0 Monocryl and dressed appropriately. COMPLICATIONS: None. CONDITION: Stable. ANESTHESIA: Local MAC. BLOOD LOSS: Minimal. TRANSINT:[id number] Voice Confirmation ID: [id number] DOCUMENT ID: [id number] OPERATIVE REPORT [id number] DIANNERAYNA NASIR PAYNE MD at 1321 CC: PERFECTO AHN MD and ANA LENNON MD [id number] DICTATION DATE: 04/20/16 1450 CLEARANCE COORDINATOR: 04/20/16 2225 DIS IN 04/21/16 [facility] [address] [place] [address]
== END 2016-04-21 11:35 | disposition home or self-care (01) | DRG 243 ==
LOC: D.CVICU 16:58
PROVIDERS: ADMIT Internal Medicine Interventional Cardiology
PROC: 02H63JZ Insertion of Pacemaker Lead into Right Atrium, Percutaneous Approach (ICD-10-PCS; 2016-04-19)
PROC: B2151ZZ Fluoroscopy of Left Heart using Low Osmolar Contrast (ICD-10-PCS; 2016-04-19)
PROC: 4A023N7 Measurement of Cardiac Sampling and Pressure, Left Heart, Percutaneous Approach (ICD-10-PCS; 2016-04-19)
PROC: 5A1223Z Performance of Cardiac Pacing, Continuous (ICD-10-PCS; principal; 2016-04-19 10:00)
PROC: 0JH606Z Insertion of Pacemaker, Dual Chamber into Chest Subcutaneous Tissue and Fascia, Open Approach (ICD-10-PCS; 2016-04-19 10:00)
PROC: B2111ZZ Fluoroscopy of Multiple Coronary Arteries using Low Osmolar Contrast (ICD-10-PCS; 2016-04-19 10:00)
PROC: 02HK3JZ Insertion of Pacemaker Lead into Right Ventricle, Percutaneous Approach (ICD-10-PCS; 2016-04-20)
DX: I21.4 Non-ST elevation (NSTEMI) myocardial infarction (principal); I44.2 Atrioventricular block, complete; I20.9 Angina pectoris, unspecified